=== PATIENT | female | born 1960 | race Caucasian/White ===

== ENCOUNTER 2018-05-23 00:27 | Outpatient (CLI) | payer MEDICAID, SELFPAY ==
--- NOTE | 2018-05-23 11:22 | DI.MAMMO_ITS ---
SYMPTOM/DIAGNOSIS: SCREENING MAMMO, Z12.31 MAMMOGRAM: 05/23 Mammograms were interpreted according to the usual protocol including computer analysis with CAD system, tomosynthesis and C view imaging. The breasts are of moderate density with fairly symmetrical distribution of fibroglandular tissue. No dominant mass or clumped microcalcification is identified in either breast. The current examination is compared with previous examinations including 04/2017 and there is question of increased prominence of focal area of asymmetric density projected in the superior central portion of the right breast on MLO view in comparison with previous examinations. Additional mammographic views of this area are requested to include MLO spot compression view of the right breast. CONCLUSION: Additional mammographic views of the right breast are requested as described above. Breast ultrasound may be indicated as well depending on the results of additional mammographic views, Category 0, breast density category B. MQSA ASSESSMENT OF FINDINGS: Incomplete: Needs additional imaging evaluation. Category 0. Patient will receive a letter notifying them of these results. BI-RADS category B. There are scattered areas of fibroglandular density.
== END 2018-05-23 00:47 ==
PROVIDERS: PCP Nurse Practitioner Family; Visit Provider Nurse Practitioner Family
DX: Z12.31 Encounter for screening mammogram for malignant neoplasm of breast (principal); R92.8 Other abnormal and inconclusive findings on diagnostic imaging of breast
CPT/HCPCS: 77063; 77067

== ENCOUNTER 2018-05-25 00:54 | Outpatient (CLI) | payer MEDICAID, SELFPAY ==
--- NOTE | 2018-05-25 09:15 | DI.COMBO_ITS ---
SYMPTOM/DIAGNOSIS: F/U MAMMO, ASYMMETRIC DENSITY RIGHT BREAST ADDITIONAL VIEWS AND RIGHT BREAST ULTRASOUND: Additional images are interpreted according to the usual protocol including tomosynthesis and 2D imaging. Additional views of the right breast fail to show a persistent discrete mass. Breast density, Category B. Right breast ultrasound was performed of the upper inner and upper outer quadrants. No cystic or solid masses are present. IMPRESSION: No evidence for malignancy. Yearly mammography is recommended. Category 1. The findings were discussed with the patient on the date of the examination. SA ASSESSMENT OF FINDINGS: Negative. Category 1. Patient will receive a letter notifying them of these results. BI-RADS category B. There are scattered areas of fibroglandular density.
== END 2018-05-25 01:14 ==
PROVIDERS: PCP Nurse Practitioner Family; Visit Provider Nurse Practitioner Family
DX: Z12.13 Encounter for screening for malignant neoplasm of small intestine (principal); R92.8 Other abnormal and inconclusive findings on diagnostic imaging of breast; N64.59 Other signs and symptoms in breast
CPT/HCPCS: 76642; 77063; 77067

== ENCOUNTER 2018-05-30 18:01 | Outpatient (REF) | payer MEDICAID, SELFPAY ==
[2018-05-30 21:50] LABS: Anion Gap 8.5 mmol/L (3-11); BUN 23 mg/dL (7-18); CO2 29.5 mmol/L (21.0-32.0); CREATININE 0.74 mg/dL (0.55-1.02); Calcium 9.7 mg/dL (8.5-10.1); Chloride 104 mmol/L (98-107); Glucose 110 mg/dL (70-100); Magnesium 2.1 mg/dL (1.8-2.4); Potassium 3.8 mmol/L (3.5-5.1); Sodium 142 mmol/L (136-145); TSH (W/Ref FT4) 3.02 uIU/mL (0.358-3.74)
[2018-06-01 13:42] LABS: Hepatitis C Ab w Rflx HCV PCR Negative (NEGAT)
== END 2018-05-30 18:21 ==
LOC: NCHCN 18:01
PROVIDERS: PCP Nurse Practitioner Family; Visit Provider Nurse Practitioner Family
DX: R53.83 Other fatigue (principal); N95.1 Menopausal and female climacteric states; F41.8 Other specified anxiety disorders; R13.10 Dysphagia, unspecified; I10 Essential (primary) hypertension; B00.1 Herpesviral vesicular dermatitis; E66.3 Overweight; Z00.00 Encounter for general adult medical examination without abnormal findings
CPT/HCPCS: 80048; 86803; 83735; 84443

== ENCOUNTER 2018-11-30 16:08 | Outpatient (CLI) | payer MEDICAID, SELFPAY ==
--- NOTE | 2018-11-30 15:41 | DI.RAD_ITS ---
SYMPTOM/DIAGNOSIS: ANKLE AND FOOT PAIN, M25.572 LEFT ANKLE: Three views. No acute fracture or dislocation is identified. There is a well corticated osseous fragment at the medial aspect of the medial malleolus, likely reflecting an old injury. The soft tissues are unremarkable. The articular surfaces are well maintained. IMPRESSION: No acute abnormality. LEFT FOOT: Three views. No acute fracture or dislocation is seen. The articular surfaces are well maintained. The soft tissues are unremarkable. There does appear to be mild joint space narrowing and periarticular spurring at the articulation between the sesamoid and the head of the first metatarsal. IMPRESSION: No acute abnormality.
== END 2018-11-30 16:28 ==
PROVIDERS: PCP Nurse Practitioner Family; Visit Provider Nurse Practitioner
DX: M25.572 Pain in left ankle and joints of left foot (principal); M19.072 Primary osteoarthritis, left ankle and foot
CPT/HCPCS: 73610; 73630

== ENCOUNTER 2019-05-24 01:08 | Outpatient (CLI) | payer MEDICAID, SELFPAY ==
--- NOTE | 2019-05-24 12:30 | DI.MAMMO_ITS ---
EXAM: MG MAMMO SCREENING CLINICAL HISTORY: SCREENING,Z12.31,PREVENTIVE HEALTH CRE,Z00.00. TECHNIQUE: Bilateral full field digital CC and MLO mammographic images were obtained with 3D tomosyn thesis and utilizing computer aided detection (CAD). COMPARISON: There are multiple priors with the most recent from 05/23/2018. FINDINGS: Masses/Architectural Distortion: None seen. Microcalcifications: No suspicious pleomorphic-type are seen. IMPRESSION: 1. No significant interval change with no specific features of malignancy noted. 2. Unless there is more urgent need, screening mammography is recommended, as per [employer] guidelines. ACR BI-RAD Category- 1 Negative Breast Density - Category B - Scattered areas of fibroglandular density A negative radiographic report should not delay biopsy if a dominant or clinically suspicious mass is present. Up to ten percent of cancers are not identified on mammography. A negative report may reinforce clinical impression. Adenosis and dense breasts may obscure an underlying neoplasm. False positive reports average 6 to 10%.
== END 2019-05-24 01:28 ==
PROVIDERS: PCP Nurse Practitioner Family; Visit Provider Nurse Practitioner Family
DX: Z12.31 Encounter for screening mammogram for malignant neoplasm of breast (principal)
CPT/HCPCS: 77063; 77067

== ENCOUNTER 2019-06-01 14:25 | Outpatient (REF) | payer MEDICAID, SELFPAY ==
[2019-06-01 21:32] LABS: Abs Immature Grans 0.01 k/cumm (0.0-0.09); Absolute Basophil Count 0.02 k/cumm (0.0-0.2); Absolute Eosinophil Count 0.12 k/cumm (0.0-0.7); Absolute Lymphocyte Count 2.04 k/cumm (1.2-3.4); Absolute Neutrophil Count 4.44 k/cumm (1.2-6.7); Basophils % 0.3; Eosinophils % 1.7; HCT 43.8 % (36.0-46.0); HGB 14.2 g/dL (12.0-15.5); Immature Grans % 0.1; Lymphocytes % 28.6; Mean Corp. HGB Concentration 32.4 g/dL (32.0-36.0); Mean Corpuscular Hemoglobin 30.5 pg (27.0-33.0); Mean Platelet Volume 11.6 fL (8.0-11.0); Neutrophils % 62.3; Platelet Count 298 x1000/uL (130-400); RBC 4.66 m/cumm (4.00-5.20); RBC Distribution Width 12.9 % (11.7-14.6); White Blood Cell Count 7.13 k/cumm (4.4-10.8)
[2019-06-01 21:46] LABS: Iron 93 ug/dL (50-175); Total Iron Binding Capacity 326 ug/dL (250-450); Transferrin Sat 29 % (15-50)
[2019-06-01 22:17] LABS: ALT 40 U/L (14-59); AST 23 U/L (15-37); Albumin 4.4 g/dL (3.4-5.0); Alkaline Phosphatase 72 U/L (46-116); BUN 20 mg/dL (7-18); Bilirubin, Total 0.5 mg/dL (0.2-1.0); CREATININE 0.85 mg/dL (0.55-1.02); Calcium 9.8 mg/dL (8.5-10.1); Calculated LDL 128 mg/dL; Chloride 104 mmol/L (98-107); Cholesterol 222 mg/dL (50-200); Glucose 91 mg/dL (70-100); HDL Cholesterol 80 mg/dL (40-60); Magnesium 1.9 mg/dL (1.8-2.4); Potassium 4.3 mmol/L (3.5-5.1); Sodium 142 mmol/L (136-145); TSH (W/Ref FT4) 3.15 uIU/mL (0.36-3.74); Total Protein 7.7 g/dL (6.4-8.2); Triglyceride 73 mg/dL (30-150); Vitamin B12 466 pg/mL (193-986)
== END 2019-06-01 14:45 ==
LOC: NCHCN 14:25
PROVIDERS: PCP Nurse Practitioner Family; Visit Provider Nurse Practitioner Family
DX: R51 Headache (principal); R20.2 Paresthesia of skin; N39.490 Overflow incontinence; R05 Cough; N95.1 Menopausal and female climacteric states; F41.8 Other specified anxiety disorders; I10 Essential (primary) hypertension; Z00.00 Encounter for general adult medical examination without abnormal findings
CPT/HCPCS: 80053; 80061; 82607; 83540; 83550; 83735; 84443; 85025